=== PATIENT | female | born 1955 | race Caucasian/White ===

== ENCOUNTER → 2016-12-16 | Outpatient (CLI) | payer OTHER ==
--- NOTE | 2016-12-16 11:19 | REPMRS ---
Patient History The patient states she had a clinical breast exam in 11/2016. Patient is postmenopausal. Family history of breast cancer in paternal aunt, breast cancer in 2 paternal cousins, and breast cancer in paternal cousin at age 30. Benign ultrasound-guided FNA biopsy of the left breast, 1996. Took hormonal contraceptives for 7 years. Digital Woman Screen Mammo: December 16, 2016 - Exam #: [id number] Bilateral CC and MLO view(s) were taken. Technologist: Samia Rolle, Technologist Prior study comparison: December 11, 2015, digital woman screen mammo performed at [facility]. December 08, 2014, digital woman screen mammo performed at [facility] [employer] [facility]. FINDINGS: The breast tissue is heterogeneously dense. This may lower the sensitivity of mammography. There has been no change in the appearance of the mammogram from the prior studies. There is a moderate amount of residual fibroglandular tissue which is fairly symmetric. There is no interval development of dominant mass, areas of architectural distortion, or clustered microcalcification typical of malignancy. ASSESSMENT: BI-RADS/ACR category 1 mammogram. Negative. Recommendation Routine screening mammogram in 1 year (for women over age 40). This mammogram was interpreted with the aid of an FDA-approved computer-aided dectection system. Electronically Signed By: Cesar Malin MD 12/16/16 4672
--- NOTE | 2016-12-18 14:53 | DEXA ---
AP SPINE L1 - L4 1.010 -1.5 0.0 LT FEMUR TOTAL 0.816 -1.5 -0.4 RT FEMUR TOTAL 0.811 -1.6 -0.5 TOTAL BODY TOTAL OTHER DUAL FEMUR FRAX* ASSESSMENT Risk factors: History of adult fracture. 10 year probability of fracture Major osteoporotic fracture 17.8 % Hip fracture 2.9 % COMMENTS: There is low bone density of the spine and hips. The decreased density of the spine does represent a significant change. The decreased density of the left hip does represent a significant change. The decreased density of the right hip does represent a significant change. The density of the spine has decreased 11.4% since the initial exam on 2006. The spine density has decreased 4.8% since the most recent exam on 12/06/2013. The density of the left hip has decreased 9.5% since the initial exam on 2006. The density of the left hip has decreased 2.9% since the most recent exam on . The density of the right hip has decreased 11.2% since the initial exam on 09/23. The density of the right hip has decreased 5.0% since the most recent exam on . FOLLOW-UP: Recommendation for the next bone density exam: 2 years. KYLIE
== END ==
LOC: M WHC 08:38
PROVIDERS: ATTEND Obstetrics & Gynecology
DX: Z12.31 Encounter for screening mammogram for malignant neoplasm of breast (principal); Z13.820 Encounter for screening for osteoporosis; Z78.0 Asymptomatic menopausal state
CPT/HCPCS: 77080; G0202

== ENCOUNTER → 2017-10-01 | Outpatient (CLI) | payer OTHER | LOC: M WUC 10:01 | DX: M25.741 Osteophyte, right hand (principal) ==

== ENCOUNTER → 2017-12-29 | Outpatient (CLI) | payer OTHER | LOC: M WHC 08:52 | DX: Z12.31 Encounter for screening mammogram for malignant neoplasm of breast (principal) ==

== ENCOUNTER → 2018-12-30 | Outpatient (CLI) | payer OTHER ==
--- NOTE | 2018-12-30 09:44 | REPMRS ---
Patient History The patient states she had a clinical breast exam in 12/2018. Family history of breast cancer in paternal aunt, breast cancer in paternal cousin, breast cancer in paternal cousin. Benign ultrasound-guided FNA biopsy of the left breast, 1996. Took hormonal contraceptives for 7 years. Digital Woman Screen Mammo: December 30, 2018 - Exam #: [id number] Bilateral CC and MLO view(s) were taken. Technologist: Shanice Posey, Technologist Prior study comparison: December 29, 2017, bilateral digital woman screen mammo performed at [facility]. December 16, 2016, digital woman screen mammo performed at [facility]. December 11, 2015, digital woman screen mammo performed at [facility]. FINDINGS: The breast tissue is heterogeneously dense. This may lower the sensitivity of mammography. There is a moderate amount of heterogeneously dense fibroglandular tissue which is fairly symmetric. There is no interval development of dominant mass, architectural distortion, or clustered microcalcification typical of malignancy. There has been no change in the appearance of the mammogram from the prior studies. 3-D tomosynthesis shows no additional findings. Assessment: BI-RADS/ACR category 1 mammogram. Negative Mammogram. Recommendation Routine screening mammogram of both breasts in 1 year (for women over age 40). This patient's Lifetime Breast Cancer RIsk is estimated at 11.4 %. This mammogram was interpreted with the aid of an FDA-approved computer-aided dectection system. Electronically Signed By: Timbo Jain MD 12/30/18 0944
== END ==
LOC: M WHC 08:29
PROVIDERS: ATTEND Obstetrics & Gynecology
DX: Z12.31 Encounter for screening mammogram for malignant neoplasm of breast (principal)

== ENCOUNTER → 2020-02-16 | Outpatient (CLI) | payer OTHER ==
--- NOTE | 2020-03-10 11:05 | REPMRS ---
Patient History The patient states she had a clinical breast exam in December 2019. Patient is postmenopausal. Family history of breast cancer in paternal aunt, breast cancer in paternal cousin, breast cancer in paternal cousin. Benign ultrasound-guided FNA biopsy of the left breast, 1996. Took hormonal contraceptives for 7 years. Digital Woman Screen Mammo: February 16, 2020 - Exam #: [id number] Bilateral CC and MLO view(s) were taken. Technologist: Mindi Wilkerson, Technologist Prior study comparison: December 30, 2018, bilateral digital woman screen mammo performed at [facility]. December 29, 2017, bilateral digital woman screen mammo performed at [facility]. December 16, 2016, digital woman screen mammo performed at [facility]. FINDINGS: There are scattered fibroglandular densities. The Volpara volumetric breast density category is: B. There is a moderate amount of residual fibroglandular tissue which is fairly symmetric. There is no interval development of dominant mass, architectural distortion, or grouped microcalcification typical of malignancy. There has been no change in the appearance of the mammogram from the prior studies. 3-D tomosynthesis shows no additional findings. Assessment: BI-RADS/ACR category 1 mammogram. Negative Mammogram. Recommendation Routine screening mammogram of both breasts in 1 year (for women over age 40). This patient's Lifetime Breast Cancer RIsk is estimated at 10.5 %. This mammogram was interpreted with the aid of an FDA-approved computer-aided dectection system. Electronically Signed By: Timbo Jain MD 03/10/20 [id number]
--- NOTE | 2020-03-20 11:21 | DEXA ---
AP SPINE L2 - L4 0.972 -1.8 -0.3 LT FEMUR TOTAL 0.800 -1.6 -0.5 LT NECK 0.744 -2.1 -0.7 RT FEMUR TOTAL 0.814 -1.5 -0.4 RT NECK 0.786 -1.8 -0.4 TOTAL BODY TOTAL OTHER COMMENTS: There is low bone density of the spine and hips. The density of the spine has decreased 14.7% since the initial exam on 09/23/2006. The decreased 3.8% since the most recent exam on 12/16/2016. The density of the left hip has decreased 11.3% since the initial exam on 09/23/2006. The density of the left hip has decreased 2.0% since the most recent exam on 12/16/2016. The density of the right hip has decreased 10.8% since the initial exam on 09/23/2006. The density of the right hip has increased 0.4% since the most recent exam on 12/16/2016. FOLLOW-UP: Recommendation for the next bone density exam: 2 years. KYLIE
== END ==
LOC: M WHC 08:55
PROVIDERS: ATTEND Obstetrics & Gynecology
DX: Z12.31 Encounter for screening mammogram for malignant neoplasm of breast (principal); Z13.820 Encounter for screening for osteoporosis; Z78.0 Asymptomatic menopausal state

== ENCOUNTER → 2021-02-20 | Outpatient (CLI) | payer MEDICARE, OTHER ==
--- NOTE | 2021-02-20 10:06 | REPMRS ---
Patient History The patient states she had a clinical breast exam in December 2020. Family history of breast cancer in paternal aunt, breast cancer in paternal cousin, breast cancer in paternal cousin. Benign ultrasound-guided FNA biopsy of the left breast, 1996. Took hormonal contraceptives for 7 years. Moderna Vaccine 09/14/20 left arm 10/12/20 left arm. Patient states no breast complaints today. Patient has signed MRS History Sheet. Digital Woman Screen Mammo: February 20, 2021 - Exam #: [id number] Bilateral CC and MLO view(s) were taken. Technologist: RT Marvel Prior study comparison: February 16, 2020, bilateral digital woman screen mammo performed at [facility]. December 30, 2018, bilateral digital woman screen mammo performed at [facility]. FINDINGS: The breast tissue is heterogeneously dense. This may lower the sensitivity of mammography. Screening. Digital screening (2D) mammography was performed bilaterally in the CC and MLO projections. Additionally, breast tomosynthesis (3D mammography) was performed bilaterally in the CC and MLO projections. Todays exam was compared to the prior exam/exams. By history, the patient has no complaints of a palpable breast abnormality or other significant breast complaints. The breasts are unchanged in size and shape.Once again, dense heterogenous fibroglandular elements are seen bilaterally in a stable appearing pattern but to such a degree that the sensitivity of the mammogram in detecting cancer is decreased.There is stable post-procedural internal architectural distortion. There are no reginaldo-soft tissue densities or spiculated masses. There is no new internal architectural distortion. Once again, stable benign appearing calcifications are seen.There are no suspicious reginaldo-calcific clusters. Skin thickening or nipple retraction is not present. IMPRESSION: BI-RADS Category 2- Benign Findings. There is no evidence of malignant alteration of the breasts. Followup examination recommended in one year. The Volpara volumetric breast density category is C, the breasts are heterogenously dense which may obscure small masses. This mamm[facility],an FDA approved computer aided detection system for mammography. The lifetime Tyrer-Cuzick score is 10 % Due to the density of the breasts or Tyrer Cuzick score of 20% or greater, MRI/whole breast screening ultrasound is warranted. Negative x-ray reports should not delay surgical consultation if a dominant or clinically suspicious mass is present. Not all breast cancers can be identified by mammography. Therefore, we recommend that you continue to perform regular breast self-examination and physical examination and then promptly contact your physician of any concerns or changes. Adenosis and dense breasts may obscure an underlying neoplasm. Assessment: BI-RADS/ACR category 2 mammogram. Benign Findings. Recommendation Routine screening mammogram of both breasts in 1 year. Electronically Signed By: Jarrett Harris DO 02/20/21 8102
== END ==
LOC: M WHC 08:42
PROVIDERS: ATTEND Advanced Practice Midwife
DX: Z12.31 Encounter for screening mammogram for malignant neoplasm of breast (principal)

== ENCOUNTER → 2022-03-14 | Outpatient (CLI) | payer MEDICARE, OTHER | LOC: M WHC 13:33 | PROVIDERS: ATTEND Obstetrics & Gynecology | DX: Z12.31 Encounter for screening mammogram for malignant neoplasm of breast (principal); Z13.820 Encounter for screening for osteoporosis; M85.89 Other specified disorders of bone density and structure, multiple sites ==

== ENCOUNTER 2022-12-18 08:51 | Day surgery (SDC) | payer MEDICARE, OTHER ==
[~2022-12-18] VITALS: Ht 152.4 cm; Wt 58.9 kg
[~2022-12-18 08:51] MED LIST: AMLO1TAB24 PO; ATOR1TAB21 PO; BYST5TAB2 PO; ECOT81TA5 PO; NS 1,000 ML IV ONE; SYNT50TA PO
[2022-12-18] MEDS ORDERED: propofoL 200 MG/20 ML VIAL As Ordered ONE (09:14)
[2022-12-18] MEDS ORDERED: LIDOCAINE 2% 100MG/5ML SDV (FOR ANES.) As Ordered ONE (09:14)
[2022-12-18] MEDS ORDERED: fentaNYL 100 MCG/2 ML INJECTION As Ordered ONE (09:14)
[2022-12-18] MEDS ORDERED: ePHEDrine SULFATE 25 MG/5 ML(5MG/ML) SYRINGE As Ordered ONE (10:50)
[2022-12-18 11:25] VITALS: BP 123/66
== END 2022-12-18 11:40 | disposition home or self-care (01) ==
LOC: M OPP 08:51
PROVIDERS: ATTEND Surgery
DX: Z12.11 Encounter for screening for malignant neoplasm of colon (principal); K57.30 Diverticulosis of large intestine without perforation or abscess without bleeding; K21.00 Gastro-esophageal reflux disease with esophagitis, without bleeding; K29.80 Duodenitis without bleeding; I10 Essential (primary) hypertension; E78.5 Hyperlipidemia, unspecified; E03.9 Hypothyroidism, unspecified; Z88.0 Allergy status to penicillin; Z88.8 Allergy status to other drugs, medicaments and biological substances; Z79.82 Long term (current) use of aspirin; Z79.890 Hormone replacement therapy; Z79.899 Other long term (current) drug therapy
CPT/HCPCS: 43239; 88305; G0121; J3010

== ENCOUNTER → 2023-03-20 | Outpatient (CLI) | payer MEDICARE, OTHER ==
[~2023-03-20] MED LIST changes: -NS 1,000 ML IV ONE
== END ==
LOC: M WHC 08:56
PROVIDERS: ATTEND Obstetrics & Gynecology
DX: Z12.31 Encounter for screening mammogram for malignant neoplasm of breast (principal)

== ENCOUNTER → 2024-03-30 | Outpatient (CLI) | payer MEDICARE, OTHER ==
[~2024-03-30] MED LIST changes: +BYST1TAB2 PO; -BYST5TAB2 PO
== END ==
LOC: M WHC 08:55
PROVIDERS: ATTEND Obstetrics & Gynecology
DX: Z13.820 Encounter for screening for osteoporosis (principal); Z12.31 Encounter for screening mammogram for malignant neoplasm of breast; M85.89 Other specified disorders of bone density and structure, multiple sites

== ENCOUNTER → 2025-04-13 | Outpatient (CLI) | payer MEDICARE, OTHER | LOC: M WHC 08:57 | PROVIDERS: ATTEND Obstetrics & Gynecology | DX: Z12.31 Encounter for screening mammogram for malignant neoplasm of breast (principal); R92.2 Inconclusive mammogram; R92.333 Mammographic heterogeneous density, bilateral breasts ==